=== PATIENT | male | born 1965 | race American Indian/Alaskan Native ===

== ENCOUNTER 2016-07-01 06:49 | Day surgery (SDC) | payer MEDICARE ==
[2016-07-01] MEDS ORDERED: DIPRIVAN 10 MG/ML IV ONE ×2 (07:23→07:24)
[2016-07-01] MEDS ORDERED: WATER FOR IRRIG STERILE IR ONE (07:30)
--- NOTE | 2016-07-01 07:56 | Anesthesia Day of Surgery ---
Anesthesia Day of Surgery - Day of Surgery Patient Examined: Yes Patient H&P Reviewed: Yes Patient is NPO: Yes
--- NOTE | 2016-07-01 07:56 | Anesthesia Consultation ---
Anesthesia Consult and Med Hx Date of service: 07/01/16 - Airway Anesthetic Teeth Evaluation: Poor (numerous missing teeth, poor dental status to remaining teeth) ROM Head & Neck: Adequate Mental/Hyoid Distance: Adequate Mallampati Class: Class II Intubation Access Assessment: Probably Good - Pulmonary Exam CTA: Yes - Cardiac Exam Cardiac Exam: RRR - Pre-Operative Health Status ASA Pre-Surgery Classification: ASA3 Proposed Anesthetic Plan: MAC - Pulmonary Hx Smoking: Yes (x 40 years) Hx Asthma: No Hx Sleep Apnea: No - Cardiovascular System Hx Hypertension: Yes (currently not on any meds, drinks 3-4 pots coffee/day) Hx Angina: Yes (chronic chest pain at least every other day) - Central Nervous System Hx Psychiatric Problems: No - Gastrointestinal Hx Gastroesophageal Reflux Disease: No - Endocrine Hx Insulin Dependent Diabetes: No - Hematic Hx Anemia: No Hx Sickle Cell Disease: No - Other Systems Hx Alcohol Use: Yes (h/o EtOH abuse) Hx Substance Use: No Hx Cancer: No - Additional Comments Anesthesia Medical History Comments: chronic constipation causing consistent nausea and vomitting
[2016-07-01] MEDS ORDERED: NACL 0.9% 1000 ML 1,000 ML IV SCH (08:00)
[2016-07-01] MEDS ORDERED: XYLOCAINE MPF 2% ONE (09:31)
--- NOTE | 2016-07-01 09:47 | Operative Report ---
Operative Report Operative Report: Operative Report: Date of procedure: 07/01/2016 Procedure: Esophagogastroduodenoscopy with multiple mucosal biopsies Attending physician: Philippe Bolton MD Towboat Pilot: Philippe Bolton MD Indication: Patient is a 50-year-old male who presented with a history of epigastric pain with bloating nausea and intestinal gas. He also has a history of anorexia and early satiety and weight loss. An upper endoscopy is done to assess patient regarding cause of his symptoms so that treatment may be directed based on the findings. Consent: Informed consent was obtained after advising the patient and family regarding nature of this procedure, its indications, potential benefits as well as possible complications including but not limited to bleeding perforation and adverse reaction to medication, infection as well as other cardiopulmonary complications. An informed written and verbal consent was then obtained after due opportunity was provided for questions and answers. Monitoring: Patient was monitored continuously with pulse oximetry and electrocardiographic recordings as well as blood pressure recordings. Vital signs remained stable throughout this procedure with no untoward events. Preoperative assessment: Patient was assessed immediately prior to this procedure for capacity to tolerate monitored anesthesia care and moderate sedation as well as general anesthesia. Patient's ASA classification is 2, Mallampati class is 2, Hyomental distance is 3. Instrument: [id number] video endoscope Medications: Propofol given intravenously in divided doses. For details please refer to anesthesia records. Description of procedure: Patient was placed in the left lateral decubitus position after achieving sedation, the endoscope was introduced into the esophagus under direct vision. It was then advanced beyond the esophagus into the stomach and then beyond the stomach into the duodenum and to the second portion of the duodenum. It was subsequently withdrawn with careful inspection of all mucosal surfaces with the following findings. Findings: Esophagus was relatively normal however patient had an irregular Z line at 38 cm. There was a 2-3 cm sliding hiatal hernia seen on entry into the stomach. There was erythema and erosions in the gastric antrum. Biopsies of the antrum were obtained for histopathology. The duodenum was normal to second portion. Impression: Irregular Z line. Hiatal hernia. Mucosal changes suggestive of gastritis. Plan: Follow pathology report. Direct additional treatment based on the pathology report.
--- NOTE | 2016-07-01 09:48 | Discharge Summary ---
Short Stay Discharge Plan Activity: advance as tolerated Weight Bearing Status: Weight Bear as Tolerated Diet: regular Follow up with: CRISTAL MACIAS MD [Primary Care Provider] - 7 Days
[2016-07-01 10:25] VITALS: BP 116/67
--- NOTE | 2016-07-01 11:39 | Post Anesthesia Evaluation ---
- Post Anesthesia Evaluation Patient Participated: Yes Airway Patent: Yes Stable Respiratory Function: Yes Nausea/Vomiting: No Temp > 96.8F: Yes Pain Manageable: Yes Adequeate Hydration: Yes Anesthesia Complications: No Block Receding Appropriately: Not Applicable Patient on Ventilator: No
== END 2016-07-01 06:50 | disposition home or self-care (01) ==
LOC: GIO 06:49
PROVIDERS: ATTEND Internal Medicine Gastroenterology
DX: K25.9 Gastric ulcer, unspecified as acute or chronic, without hemorrhage or perforation (principal); K22.8 Other specified diseases of esophagus; K44.9 Diaphragmatic hernia without obstruction or gangrene; I10 Essential (primary) hypertension; F10.21 Alcohol dependence, in remission; M19.90 Unspecified osteoarthritis, unspecified site; F41.9 Anxiety disorder, unspecified; F32.9 Major depressive disorder, single episode, unspecified; F17.210 Nicotine dependence, cigarettes, uncomplicated; F12.90 Cannabis use, unspecified, uncomplicated; Z83.71 Family history of colonic polyps; Z79.899 Other long term (current) drug therapy
CPT/HCPCS: 43239; 88305; 88342; J2704; J7030

== ENCOUNTER 2016-07-11 07:26 | Day surgery (SDC) | payer MEDICARE ==
[2016-07-11] MEDS ORDERED: WATER FOR IRRIG STERILE ONE (07:37)
[2016-07-11] MEDS ORDERED: WATER FOR IRRIG STERILE IR ONE ×2 (07:38→08:50)
[2016-07-11] MEDS ORDERED: INFANTS' GAS RELIEF PO ONE (07:43)
[2016-07-11] MEDS ORDERED: NACL 0.9% 1000 ML 1,000 ML IV SCH (08:00)
[2016-07-11] MEDS ORDERED: DIPRIVAN 10 MG/ML IV ONE ×2 (08:51)
--- NOTE | 2016-07-11 09:02 | Anesthesia Day of Surgery ---
Anesthesia Day of Surgery - Day of Surgery Patient Examined: Yes Patient H&P Reviewed: Yes Patient is NPO: Yes
--- NOTE | 2016-07-11 09:02 | Anesthesia Consultation ---
Anesthesia Consult and Med Hx Date of service: 07/11/16 - Airway Anesthetic Teeth Evaluation: Poor ROM Head & Neck: Adequate Mental/Hyoid Distance: Adequate Mallampati Class: Class II Intubation Access Assessment: Probably Good - Pulmonary Exam CTA: Yes - Cardiac Exam Cardiac Exam: RRR - Pre-Operative Health Status ASA Pre-Surgery Classification: ASA2 Proposed Anesthetic Plan: MAC - Pulmonary Hx Smoking: Yes (x 40 years) Hx Asthma: No Hx Sleep Apnea: No - Cardiovascular System Hx Hypertension: Yes Hx Angina: Yes (chronic chest pain at least every other day) - Central Nervous System Hx Psychiatric Problems: No - Gastrointestinal Hx Gastroesophageal Reflux Disease: No - Endocrine Hx Insulin Dependent Diabetes: No - Hematic Hx Anemia: No Hx Sickle Cell Disease: No - Other Systems Hx Alcohol Use: Yes Hx Substance Use: Yes Hx Cancer: No
[2016-07-11] MEDS ORDERED: XYLOCAINE MPF 2% ONE (09:40)
[2016-07-11 10:33] VITALS: BP 117/69
--- NOTE | 2016-07-11 10:35 | Operative Report ---
Operative Report Operative Report: Date of procedure: 07/11/2016 Procedure: Colonoscopy with multiple hot biopsy polypectomies, polyp ablation. Attending physician: Philippe Bolton MD Dental Coordinator: Philippe Bolton MD Indication: Patient is a 50-year-old male who presents for screening colonoscopy. He has a history of rectal bleeding and diffuse abdominal pain. A colonoscopy service to evaluate patients symptoms and also for colorectal cancer screening.. Consent: Informed consent was obtained after advising the patient and family regarding nature of this procedure, its indications, potential benefits as well as possible complications including but not limited to bleeding perforation and adverse reaction to medication, infection as well as other cardiopulmonary complications. An informed written and verbal consent was then obtained after due opportunity was provided for questions and answers. Monitoring: Patient was monitored continuously with pulse oximetry and electrocardiographic recordings as well as blood pressure recordings. Vital signs remained stable throughout this procedure with no untoward events. Preoperative assessment: Patient was assessed immediately prior to this procedure for capacity to tolerate monitored anesthesia care and moderate sedation as well as general anesthesia. Patient's ASA classification is 2, Mallampati class is 2, Hyomental distance is 3. Instrument: InTuun Systemsn videocolonoscope Medications: Propofol given intravenously in divided doses. For details please refer to anesthesia records. Description of procedure: Patient was placed in the left lateral decubitus position after achieving sedation, a digital rectal examination was performed following which the colonoscope was introduced into the anal verge and advanced to the cecum which was identified by the cecal valve, the appendiceal orifice, as well as by the cecal strap and direct transillumination. The colonoscope was subsequently withdrawn with careful inspection of all mucosal surfaces. Patient tolerated this procedure well and was subsequently taken to the recovery room. The following findings were noted. Findings: Patient had 2 diminutive polyps in the sigmoid colon which were removed by hot biopsy polypectomy. There was a third flat polyp that was ablated. The rest of the colon to the cecum was normal. On the retroflex view at the anal verge, patient had internal hemorrhoids. Impression: Multiple diminutive colon polyps status post hot biopsy polypectomy and ablation Internal hemorrhoids. Plan: Follow pathology report. High-fiber diet. Repeat colonoscopy in 5 years. If patient has recurrent bleeding, he may benefit from hemorrhoidal band ligation.
--- NOTE | 2016-07-11 10:48 | Discharge Summary ---
Short Stay Discharge Plan Activity: advance as tolerated Weight Bearing Status: Weight Bear as Tolerated Diet: regular Additional Instructions: Post Sedation D/C Instructions When you return home you may resume your regular diet unless otherwise directed. -Go directly home from the hospital and rest quietly. You may resume normal activities tomorrow. - Do NOT drive, return to work, operate any machinery or make any important personal or business decisions today . -Do NOT drink any alcohol or take nerve or sleeping drugs. They add to the effects of the medicine still present in your body. Follow up with: CRISTAL MACIAS MD [Primary Care Provider] - 7 Days
== END 2016-07-11 07:27 | disposition home or self-care (01) ==
LOC: GIO 07:26
PROVIDERS: ATTEND Internal Medicine Gastroenterology
DX: K63.5 Polyp of colon (principal); K64.8 Other hemorrhoids; I10 Essential (primary) hypertension; F17.210 Nicotine dependence, cigarettes, uncomplicated; Z72.89 Other problems related to lifestyle
CPT/HCPCS: 45384; 45388; 88305; J2704; J7030